=== PATIENT | female | born 1995 | race Caucasian/White ===

== ENCOUNTER 2024-08-22 00:42 | Observation (INO) | payer OTHER ==
[2024-08-22 01:12] VITALS: BMI 45.3
[2024-08-22] MEDS ORDERED: ACETAMINOPHEN INJECTION 100 ML ONE (02:25)
[2024-08-22] MEDS: ACETAMINOPHEN 1000 MG/100 ML BAG IVPB ONE (02:43)
[2024-08-22 02:48] LABS: BASO % 0.2 % (0-2.0); EOS % 0.4 % (0-4.5); HEMATOCRIT 29.5 % (32.4-45.2); HEMOGLOBIN 9.6 GM/dL (10.7-15.3); MCH 26.3 pg (25.7-33.7); MCHC 32.6 g/dl (32.0-36.0); MEAN CELL VOLUME 80.9 fl (80-96); MEAN PLT VOLUME 8.8 fl (7.5-11.1); MONO % 4.9 % (3.8-10.2); NEUT % 84.5 % (42.8-82.8); PLATELET COUNT 273 10^3/uL (134-434); RBC 3.65 M/mm3 (3.60-5.2); RDW 15.6 % (11.6-15.6); WHITE BLOOD COUNT 15.3 K/mm3 (4.0-10.0)
[2024-08-22 03:01] LABS: POTASSIUM 3.5 mmol/L (3.5-5.1)
[2024-08-22 03:03] LABS: ALBUMIN 2.8 g/dl (3.4-5.0); BLOOD UREA NITROGEN 10.6 mg/dL (7-18); CALCIUM 8.6 mg/dL (8.5-10.1)
[2024-08-22 03:06] LABS: CREATININE 0.6 mg/dL (0.55-1.3)
[2024-08-22 03:08] LABS: BILIRUBIN,TOTAL 0.3 mg/dL (0.2-1); TOT PROT 5.7 g/dl (6.4-8.2)
[2024-08-22] MEDS: SODIUM CHLORIDE 0.9% 500 ML INFUS.BAG IV ONE (03:55)
[2024-08-22 04:17] LABS: BASO % 0.2 % (0-2.0); EOS % 0.3 % (0-4.5); HEMATOCRIT 28.5 % (32.4-45.2); HEMOGLOBIN 9.3 GM/dL (10.7-15.3); LYMPH % 8.5 % (8-40); MCH 26.5 pg (25.7-33.7); MCHC 32.7 g/dl (32.0-36.0); MEAN CELL VOLUME 81.1 fl (80-96); MEAN PLT VOLUME 8.3 fl (7.5-11.1); MONO % 4.2 % (3.8-10.2); NEUT % 86.8 % (42.8-82.8); PLATELET COUNT 240 10^3/uL (134-434); RBC 3.51 M/mm3 (3.60-5.2); RDW 15.8 % (11.6-15.6); WHITE BLOOD COUNT 13.7 K/mm3 (4.0-10.0)
[2024-08-22] MEDS: SODIUM CHLORIDE 1,000 ML IV STA (07:52)
[2024-08-22] MEDS: MISOPROSTOL 200 MCG TABLET PO ONE (12:13)
[2024-08-22 14:27] LABS: BASO % 0.2 % (0-2.0); EOS % 0.3 % (0-4.5); HEMATOCRIT 26.1 % (32.4-45.2); HEMOGLOBIN 8.6 GM/dL (10.7-15.3); LYMPH % 10.9 % (8-40); MCH 26.9 pg (25.7-33.7); MCHC 33.1 g/dl (32.0-36.0); MEAN CELL VOLUME 81.3 fl (80-96); MEAN PLT VOLUME 8.5 fl (7.5-11.1); MONO % 5.1 % (3.8-10.2); NEUT % 83.5 % (42.8-82.8); PLATELET COUNT 230 10^3/uL (134-434); RBC 3.21 M/mm3 (3.60-5.2); RDW 15.6 % (11.6-15.6); WHITE BLOOD COUNT 10.3 K/mm3 (4.0-10.0)
[2024-08-22 17:29] LABS: EPI CELLS 22 /uL (0-25.1); HYALINE CASTS 1 /uL (0-3.1); PH,URINE 5.5 (5.0-8.0); URINE APPEARANCE CLOUDY; URINE BACTERIA 44 /uL (0-1359); URINE BILIRUBIN NEGATIVE (NEGATIVE); URINE COLOR ORANGE; URINE GLUCOSE (UA) NEGATIVE (NEGATIVE); URINE KETONE TRACE (NEGATIVE); URINE LEUK ESTERASE NEGATIVE (NEGATIVE); URINE NITRITE NEGATIVE (NEGATIVE); URINE PROTEIN TRACE (NEGATIVE); URINE RBC 6994 /uL (0-23.9); URINE WBC 51 /uL (0-25.8)
[2024-08-22] MEDS: MISOPROSTOL 200 MCG TABLET NR ONE (18:30)
[2024-08-22 18:34] VITALS: BP 112/67; PULSE 89; RESP 16; TEMP 98.3
== END 2024-08-22 18:45 | disposition home or self-care (01) ==
LOC: JER 00:42 → JERBED 08:19
PROVIDERS: ADMIT Internal Medicine; ATTEND Internal Medicine
PROC: 3E033NZ Introduction of Analgesics, Hypnotics, Sedatives into Peripheral Vein, Percutaneous Approach (ICD-10-PCS; principal; 2024-08-22)
PROC: 3E0337Z Introduction of Electrolytic and Water Balance Substance into Peripheral Vein, Percutaneous Approach (ICD-10-PCS; 2024-08-22)
DX: D62 Acute posthemorrhagic anemia (principal); N93.9 Abnormal uterine and vaginal bleeding, unspecified; Z72.0 Tobacco use
CPT/HCPCS: 36415; 76830-TC; 80053; 81003; 84702; 85025; 86850; 86900; 86901; 87086; 93005; 93010; 96361; 96374; 99285-25; G0378; J0131